=== PATIENT | female | born 1970 ===

== ENCOUNTER 2017-01-26 00:01 | Emergency (ER) | payer OTHER ==
[2017-01-26] MEDS ORDERED: Sodium Chloride 0.9% 10 ML Syringe FLUSH PRN (00:16)
[2017-01-26] MEDS ORDERED: Sodium Chloride 0.9% 1,000 ML IV SCH (00:30)
--- NOTE | 2017-01-26 00:43 | EDM.PDOC ---
ED HPI GENERAL MEDICAL PROBLEM - General Chief Complaint: Gastrointestinal Problem Stated Complaint: [facility] Time Seen by Provider: 01/26/17 00:15 Source of Information: Reports: Patient, Family, RN Notes Reviewed - History of Present Illness INITIAL COMMENTS - FREE TEXT/NARRATIVE: 46-year-old female has been brought in by ambulance after suffering syncopal event a very short time ago at home. She had been feeling totally fine earlier today and this past evening. She and her family had gone out to eat this evening. She did have a "burrito at [facility]". She also did have "one beer at that time". She then went to bed a few hours ago, awakened about 40 minutes ago with severe nausea, abdominal cramps. She did get to the bathroom had severe watery diarrhea. During that time and right afterwards she states that she felt dizzy, lightheaded and was "sweaty". In her mind she thought the "beer was making me sick". She then tried to walk back to the bedroom and as she approached the bedroom she passed out. heard the "thud" of her falling to the floor. She had brief LOC. EMS was called and she was transported here without further incident. Given Zofran 4 mg IV en route. - Related Data Allergies Allergy/AdvReac Type Severity Reaction Status Date / Time No Known Allergies Allergy Verified 01/26/17 00:09 Past Medical History [employer] History: Reports: Social & Family History - Tobacco Use Smoking Status *Q: Never Smoker - Caffeine Use Caffeine Use: Reports: Coffee - Recreational Drug Use Recreational Drug Use: No ED ROS GENERAL - Review of Systems Review Of Systems: See Below Constitutional: Reports: Diaphoresis (Gone). Denies: Fever, Chills HEENT: Denies: Throat Pain, Vertigo Respiratory: Denies: Shortness of Breath, Pleuritic Chest Pain Cardiovascular: Denies: Chest Pain GI/Abdominal: Reports: Abdominal Pain (She did have abdominal cramps initially, currently gone), Diarrhea (Watery, severe), Nausea, Vomiting Skin: Reports: No Symptoms Neurological: Reports: Dizziness (Gone), Syncope, Weakness (Brief generalized) ED EXAM, GI/ABD - Physical Exam Exam: See Below General Appearance: Alert, No Apparent Distress Eyes: Bilateral: Normal Appearance Throat/Mouth: Normal Inspection, Normal Oropharynx, Other (No intraoral injury) Head: Atraumatic. No: Facial Swelling Neck: Supple, Full Range of Motion Respiratory/Chest: No Respiratory Distress, Lungs Clear, Normal Breath Sounds GI/Abdominal Exam: Soft, Non-Tender. No: Guarding Extremities: Normal Inspection, Normal Range of Motion. No: Leg Pain Neurological: Alert, Oriented, No Motor/Sensory Deficits Skin Exam: Warm, Dry, Normal Color EKG INTERPRETATION EKG Date: 01/26/17 Rhythm: NSR [place]: Normal P-Wave: Present QRS: Normal ST-T: Normal Course - Vital Signs Last Recorded V/S: Last Vital Signs Temp 96.8 F 01/26/17 00:03 Pulse 81 01/26/17 00:03 Resp 18 01/26/17 00:03 BP 105/57 L 01/26/17 00:03 Pulse Ox 100 01/26/17 00:03 - Orders/Labs/Meds Orders: Active Orders 24 hr Category Date Time Status EKG 12 Lead [EKG Documentation Completion] [] STAT Care 01/26/17 00:16 Active Peripheral IV Care [RC] . DIRECTED Care 01/26/17 00:16 Active Sodium Chloride 0.9% [Normal Saline] 1,000 ml Med 01/26/17 00:30 Active IV ONETIME Sodium Chloride 0.9% [Saline Flush] Med 01/26/17 00:16 Active 10 ml FLUSH ASDIRECTED PRN Peripheral IV Insertion Adult [OM.PC] Stat Oth 01/26/17 00:16 Ordered Medication Orders Sodium Chloride (Normal Saline) 1,000 mls @ 999 mls/hr IV ONETIME [facility] Last Admin: 01/26/17 00:37 Dose: 999 mls/hr Sodium Chloride (Saline Flush) 10 ml FLUSH ASDIRECTED PRN PRN Reason: Keep Vein Open Labs: Laboratory Tests 01/26/17 01/26/17 Range/Units 00:35 00:35 WBC 5.64 (3.98-10.04) K/mm3 RBC 3.74 L (3.98-5.22) M/mm3 Hgb 11.8 (11.2-15.7) gm/L Hct 35.0 (34.1-44.9) % MCV 93.6 (79.4-94.8) fl MCH 31.6 (25.6-32.2) pg MCHC 33.7 (32.2-35.5) g/dl RDW Std Deviation 41.1 (36.4-46.3) fL Plt Count 200 (182-369) K/mm3 MPV 9.7 (9.4-12.3) fl Neut % (Auto) 47.9 (34.0-71.1) % Lymph % (Auto) 40.4 (19.3-51.7) % [place] % (Auto) 8.0 (4.7-12.5) % Eos % (Auto) 3.0 (0.7-5.8) Baso % (Auto) 0.5 (0.1-1.2) % Neut # (Auto) 2.70 (1.56-6.13) K/mm3 Lymph # (Auto) 2.28 (1.18-3.74) K/mm3 [place] # (Auto) 0.45 H (0.24-0.36) K/mm3 Eos # (Auto) 0.17 (0.04-0.36) K/mm3 Baso # (Auto) 0.03 (0.01-0.08) K/mm3 Sodium 141 (136-145) mEq/L Potassium 3.5 (3.5-5.1) mEq/L Chloride 105 (98-107) mEq/L Carbon Dioxide 28 (21-32) mEq/L Anion Gap 11.5 (5-15) BUN 14 (7-18) mg/dL Creatinine 0.8 (0.55-1.02) mg/dL Est Cr Clr Drug Dosing 89.96 mL/min Estimated GFR (MDRD) > 60 (>60) mL/min BUN/Creatinine Ratio 17.5 (14-18) Glucose 97 (74-106) mg/dL Calcium 8.7 (8.5-10.1) mg/dL Total Bilirubin 0.3 (0.2-1.0) mg/dL AST 16 (15-37) U/L ALT 25 (14-59) U/L Alkaline Phosphatase 49 (46-116) U/L Total Protein 6.2 L (6.4-8.2) g/dl Albumin 3.6 (3.4-5.0) g/dl Globulin 2.6 gm/dL Albumin/Globulin Ratio 1.4 (1-2) Meds: Medications Generic Name Dose Route Start Last Admin Trade Name Brett PRN Reason Stop Dose Admin Sodium Chloride 1,000 mls @ 999 mls/hr 01/26/17 00:30 01/26/17 00:37 Normal Saline IV 999 mls/hr ONETIME FIDELIA Administration Sodium Chloride 10 ml 01/26/17 00:16 Saline Flush FLUSH ASDIRECTED PRN Keep Vein Open - Re-Assessments/Exams Free Text/Narrative Re-Assessment/Exam: 01/26/17 01:47 Patient feeling much better after 1 L normal saline, no major pain or nausea at this time, discharge instructions as documented Departure - Departure Time of Disposition: 01:45 Disposition: Home, Self-Care 01 Condition: Fair Clinical Impression: Vomiting, Diarrhea Syncope Qualifiers: Syncope type: vasovagal syncope Qualified Code(s): R55 - Syncope and collapse - Discharge Information Forms: ED Department Discharge Additional Instructions: Rest, clear liquids as tolerated for the next 6-8 hours, than very careful bland diet as tolerated. Probiotic once or twice daily for the next 3-5 days recommended, your potassium today was 3.5, low range of normal, bananas, potatoes, other fruit and vegetables are good sources of potassium. Follow-up clinic as needed, return to ED if symptoms worsening in any way - My Orders Last 24 Hours: My Active Orders 01/26/17 00:16 EKG 12 Lead [EKG Documentation Completion] [RC] STAT Peripheral IV Care [RC] . DIRECTED Sodium Chloride 0.9% [Saline Flush] 10 ml FLUSH ASDIRECTED PRN Peripheral IV Insertion Adult [OM.PC] Stat 01/26/17 00:30 Sodium Chloride 0.9% [Normal Saline] 1,000 ml IV ONETIME - Assessment/Plan Last 24 Hours: My Active Orders 01/26/17 00:16 EKG 12 Lead [EKG Documentation Completion] [RC] STAT Peripheral IV Care [RC] . DIRECTED Sodium Chloride 0.9% [Saline Flush] 10 ml FLUSH ASDIRECTED PRN Peripheral IV Insertion Adult [OM.PC] Stat 01/26/17 00:30 Sodium Chloride 0.9% [Normal Saline] 1,000 ml IV ONETIME
== END 2017-01-26 01:59 | disposition home or self-care (01) ==
LOC: JD.ED 00:01
DX: R55 Syncope and collapse (principal); R11.10 Vomiting, unspecified; R19.7 Diarrhea, unspecified
CPT/HCPCS: 36415; 80053; 85025; 93005; 96360; 99284; J7040